=== PATIENT | female | born 1985 | race Caucasian/White ===

== ENCOUNTER 2023-08-12 11:39 | Emergency (ER) | payer OTHER, SELFPAY ==
[2023-08-12] VITALS (8 sets, daily range): BP systolic 103–166; BP diastolic 55–80; PULSE 54–80; RESP 16–18; TEMP 37; O2SAT 98–100; BMI 35.3
--- NOTE | 2023-08-12 | ECG_ITS ---
Test Reason : SYNCOPE Blood Pressure : / mmHG Vent. Rate : 055 BPM Atrial Rate : 055 BPM P-R Int : 148 ms QRS Dur : 084 ms QT Int : 420 ms P-R-T Axes : 044 007 -03 degrees QTc Int : 401 ms Sinus bradycardia with sinus arrhythmia Otherwise normal ECG No previous ECGs available Referred By: Generic ED Physician Electronically Signed By:DOT YOUNG MD
--- NOTE | ~2023-08-12 | CT_ITS ---
EXAMINATION: CT HEAD WITHOUT CONTRAST CLINICAL INFORMATION: Headache. COMPARISON: None available. TECHNIQUE: Contiguous axial imaging was performed from the skull base to vertex without intravenous administration of contrast. This CT examination was performed using dose optimization techniques as appropriate, variously including the following: *Automated exposure control *Adjustment of mA and/or kV according to patient size (this includes techniques or standardized protocols for targeted exams where dose is matched to indication/reason for exam; i.e. extremities or head) *Use of iterative reconstruction technique DLP: 670 mGy-cm FINDINGS: The lateral, third and fourth ventricles are normally outlined. The cortical sulci and basal cisterns are normally outlined as well. There is no acute territorial defect, hemorrhage or midline shift. The extra-axial spaces are unremarkable. Calvarium: Intact. Maxillofacial sinuses and mastoids: There are ethmoid and maxillary sinus opacities/mucosal thickening. The remaining visualized maxillofacial sinuses are clear. The mastoids are clear. CT/CT head/brain wo IV con IMPRESSION: No acute intracranial abnormality. Maxillary and ethmoid sinus mucosal thickening/opacities of uncertain acuity.
--- NOTE | 2023-08-12 12:28 | ED_ITS ---
HPI - Syncope General Chief Complaint: Syncope Stated Complaint: FAINTED,LORD FOR DAYS PER EMS Time Seen by Provider: 08/12/23 12:21 Source: patient and EMS Mode of arrival: EMS Limitations: no limitations History of Present Illness HPI narrative: headache for 10 days now with syncope at work, no head trauma but continued headache. NO nausea or vomiting complaint: loss of consciousness Onset (ago): minute(s) Prodromal symptoms: headache Related Data Previous Rx's Medication Instructions Recorded amoxicillin 875 mg-potassium 1 tab PO BID #20 tabs 08/12/23 clavulanate 125 mg tablet fluticasone furoate 27.5 2 spray intranasal DAILY #9.1 mL 08/12/23 mcg/actuation nasal spray,suspension (Flonase Sensimist) Allergies Allergy/AdvReac Type Severity Reaction Status Date / Time No Known Allergies Allergy Verified 08/12/23 11:56 Review of Systems 2 Review of Systems: Yes all other systems are reviewed and are negative Neurologic: Denies Sensory deficit (Neuro) [facility] Social History Social History Alcohol intake: never Smoked in Last 30 Days: Yes Use of substances other than those prescribed or required for medical reasons: No Advance Directives: No Advance Directives Information Provided: No Patient : No Physical Exam 2 Vital Signs: Vital Signs: Last Vital Signs Temp 98.6 F 08/12/23 11:58 Pulse 56 08/12/23 14:31 Resp 16 08/12/23 14:31 BP 103/55 L 08/12/23 14:31 Pulse Ox 98 08/12/23 14:31 O2 Del Method Room Air 08/12/23 14:31 BMI result Body Mass Index 35.3 Const: General: healthy appearing Nutritional Appearance: average body habitus Orientation/consciousness: oriented to person and patient oriented x3 Limitations: no limitations HEENT: Other: Tms and pharynx normal Head: Yes normal to inspection Ears: external ears normal General nose exam: Normal external nose present Mouth: Normal oral and palatal mucosa present and oropharynx normal Throat: Yes posterior oropharynx normal Eyes: General: appearance normal, both eyes and all related structures Neck: Other: supple Neck: Yes normal visual inspection Chest: Chest palpation & inspection: normal inspection of the chest Resp: Auscultation: clear to auscultation bilaterally Cardio: Jugular venous distension: no JVD Rate: regular rate Rhythm: r egular rhythm Heart sounds: S1 normal heart sound present and S2 normal heart sound present GI: Inspection: Yes normal to inspection Palpation (GI): Soft to palpation, nontender and No hepatosplenomegaly present Auscultation: normal bowel sounds : General: Yes no CVA tenderness Back/Spine/Pelvis: Back: no CVA tenderness Skin: General skin exam: no rashes or lesions noted Neuro: General: oriented to person and patient oriented x3 Cranial nerves: Yes CN's II-XII intact bilaterally Motor exam (neuro): 5/5 motor strength present throughout Sensory Exam: No Sensory deficit (Neuro) Extrem: General: Yes normal to inspection Psych: Appearance: grossly normal Course Reevaluation(s) Reevaluation #1: UA with possible UTI, head CT no bleed or mass, but maxillary sinusitis will start flonase and augmentin and dc home Time: 14:53 Medical Decision Making Differential Diagnosis Differential Diagnoses: The differential diagnosis associated with the presentation includes (syncope, anemia, arrhythmia, migraine, otitis were all considered) Admission/Observation Consideration of admission/observation: Escalation of care including admission/observation considered (upon arrival patient was considered for admission) Lab Data MDM Lab Attestation statement: I reviewed the patient's lab results. (slight elevation of WBC, UA consistent with UTI) 08/12/23 12:25 08/12/23 12:25 Labs: Lab Results 08/12/23 08/12/23 Range/Units 12:21 12:25 WBC 11.9 H (4.8-10.8) X10*3/uL RBC 4.68 (4.20-5.50) X10*6/uL Hgb 13.3 (12.0-16.0) g/dl Hct 40.5 (37.0-47.0) % MCV 86.5 (80.0-98.0) fL MCH 28.4 (27.0-33.0) pg MCHC 32.8 (31.0-35.0) g/dl RDW 12.9 (11.0-16.0) % Plt Count 350 (160-400) X10*3/uL MPV 8.8 L (9.4-12.3) fL Immature Gran % (Auto) 0.3 (0.0-0.4) % Neut % (Auto) 71.1 (45-73) % Lymph % (Auto) 20.7 (20-40) % Mayes % (Auto) 6.5 (2-11) % Eos % (Auto) 1.0 (0-4) % Baso % (Auto) 0.4 (0-2) % Lymph # (Auto) 2.5 (1.2-4.9) X10*3/uL Mayes # (Auto) 0.8 (0.1-1.2) X10*3/uL Eos # (Auto) 0.1 (0.0-0.4) X10*3/uL Baso # (Auto) 0.1 (0.0-0.2) X10*3/uL Abs Immat Gran (auto) 0.04 H (0.00-0.03) X10*3/uL Absolute Neuts (auto) 8.5 H (2.0-8.3) x10*3/uL Absolute Nucleated RBC 0.000 (0.0-0.012) X10*3/uL Nucleated RBC % (auto) 0.0 (0.0-0.2) /100WBC Sodium 139 (135-145) mmol/L Potassium 4.3 (3.3-5.1) mmol/L Chloride 105 (96-108) mmol/L Carbon Dioxide 29 (22-29) mmol/L Anion Gap 9 L (12-20) BUN 14 (9-16) mg/dL Creatinine 0.78 (0.5-1.4) mg/dL Estim Creat Clear Calc 98.5 Estimated GFR > 60 Random Glucose 93 (60-115) mg/dL Calcium 10.0 (8.4-10.2) mg/dL Total Bilirubin 0.4 (0.0-1.0) mg/dL AST 20 (5-31) U/L ALT 16 (0-31) U/L Alkaline Phosphatase 41 (39-117) U/L Total Protein 7.4 (6.5-8.0) g/dL Albumin 4.3 (3.5-5.0) g/dL Urine Color Yellow Urine Appearance Cloudy Urine pH 7.0 (5.0-9.0) Ur Specific [place] <= 1.005 (1.005-1.025) Urine Protein Negative (Neg-Trace) mg/dL Urine Glucose (UA) Negative (Negative) mg/dL Urine Ketones Negative (Negative) mg/dL Urine Blood Small (1+) H (Negative) Urine Nitrite Negative (Negative) Ur Leukocyte Esterase Small (1+) H (Negative) Urine RBC 3-5 H (0-2) /HPF Urine WBC 11-20 H (0-5) /HPF Ur Squamous Epith Cells 3-5 (0-2) /HPF Urine Bacteria None Seen (None Seen) Hyaline Casts 0-2 (0-2) /LPF Urine Test NEGATIVE (NEGATIVE) Independent Interpretation I performed an independent interpretation of an: EKG (sinus [address] or twave changes) and CT Scan (no mass, no bleed, fluid filled sinuses) Radiology Impression Discussion of test interpretation with radiology: I have reviewed the radiologist's reading. (and agree for sinusitis) Independent Historian Clinical information obtained from an independent historian. History obtained from or confirmed by: Spouse and Friend Prescription Management I considered prescription management with: Antibiotic (will start augmentin to cover UTI and sinusitis) Discharge Plan Discharge Clinical Impression: Syncope, Urinary tract infection, Sinusitis Patient Disposition: Home, Self-Care Instructions: Urinary Tract Infection in Women (DC), Sinusitis (ED), Syncope (ED) Prescriptions: New Flonase Sensimist 27.5 mcg/actuation spray,suspension 2 spray intranasal DAILY Qty: 9.1 0RF Rx Instructions: into each nostril amoxicillin-pot clavulanate 875-125 mg tablet 1 tab PO BID Qty: 20 0RF Referrals: Physician,None [Primary Care Provider] - 5 days
[2023-08-12 12:31] LABS: MANUAL DIFF FLAG NO
[2023-08-12 12:33] LABS: Appearance Urine Cloudy; Color Urine Yellow; Glucose Urine UA Negative (Negative); Leukocyte Esterase Urine Small (1+) (Negative); Nitrite Urine Negative (Negative); Specific Gravity - Urine <= 1.005 (1.005-1.025); UMIC TRIGGER UACC YES; Urine Blood Small (1+) (Negative); Urine Ketones Negative (Negative); Urine Protein Negative (Neg-Trace)
[2023-08-12 12:33] LABS: Basophils Absolute Auto 0.1 X10*3/uL (0.0-0.2); Basophils Percent Auto 0.4 % (0-2); Eosinophils Absolute Auto 0.1 X10*3/uL (0.0-0.4); Hematocrit 40.5 % (37.0-47.0); Hemoglobin 13.3 g/dl (12.0-16.0); Imm Gran Abs Auto 0.04 X10*3/uL (0.00-0.03); Imm Gran Pct Auto 0.3 % (0.0-0.4); Lymphocytes Absolute Auto 2.5 X10*3/uL (1.2-4.9); Lymphocytes Percent Auto 20.7 % (20-40); Mean Corpuscular HGB Conc 32.8 g/dl (31.0-35.0); Mean Corpuscular Hemoglobin 28.4 pg (27.0-33.0); Mean Corpuscular Volume 86.5 fL (80.0-98.0); Mean Platelet Volume 8.8 fL (9.4-12.3); Monocytes Absolute Auto 0.8 X10*3/uL (0.1-1.2); Monocytes Percent Auto 6.5 % (2-11); Neutrophils Absolute Auto 8.5 x10*3/uL (2.0-8.3); Neutrophils Percent Auto 71.1 % (45-73); Platelet Count 350 X10*3/uL (160-400); Red Blood Count 4.68 X10*6/uL (4.20-5.50); Red Cell Distribution Width 12.9 % (11.0-16.0); White Blood Count 11.9 X10*3/uL (4.8-10.8)
[2023-08-12 12:41] LABS: Bacteria Urine None Seen (None Seen); Hyaline Casts Urine 0-2 /LPF (0-2); UACC Culture Trigger YES
[2023-08-12 12:44] LABS: Anion Gap 9 (12-20); Blood Urea Nitrogen 14 mg/dL (9-16); Carbon Dioxide 29 mmol/L (22-29); Chloride 105 mmol/L (96-108); Potassium 4.3 mmol/L (3.3-5.1); Sodium 139 mmol/L (135-145)
[2023-08-12 12:45] LABS: Alanine Aminotransferase 16 U/L (0-31); Albumin Level 4.3 g/dL (3.5-5.0); Alkaline Phosphatase 41 U/L (39-117); Aspartate Amino Transferase 20 U/L (5-31); Bilirubin Total 0.4 mg/dL (0.0-1.0); Creatinine Clr Calc Pharmacy 98.5; Estimated Glomerular Filt Rate > 60; Glucose Random 93 mg/dL (60-115); Total Protein 7.4 g/dL (6.5-8.0)
[2023-08-12 13:03] LABS: UPreg QC Valid YES; Urine Pregnancy NEGATIVE (NEGATIVE)
[2023-08-12] MEDS: Ketorolac Tromethamine 60 MG/2 ML VIAL IM (16:06)
== END 2023-08-12 16:07 | disposition home or self-care (01) ==
PROVIDERS: Emergency Provider Emergency Medicine
DX: R55 Syncope and collapse (principal); J32.9 Chronic sinusitis, unspecified; N39.0 Urinary tract infection, site not specified; R51.9 Headache, unspecified
CPT/HCPCS: 36415; 70450; 80053; 81001; 81025; 85025; 87086; 93005; 99283; 99285; J1885

== ENCOUNTER 2025-08-04 08:31 | Outpatient (REF) | payer OTHER, SELFPAY ==
--- NOTE | ~2025-08-04 | XR_ITS ---
EXAMINATION: X-ray thoracic spine X-ray lumbar spine CLINICAL INFORMATION: Dorsalgia COMPARISON: None TECHNIQUE: Thoracic spine 3 views. Lumbar spine 3 views. FINDINGS: Thoracic spine: The upper thoracic spine is obscured on the lateral projection. On the provided views, no evidence of acute fracture or subluxation. Vertebral body heights are maintained. Mild disc degeneration in the lower thoracic spine. No suspicious bony lesions. Lumbar spine: There appears to be transitional anatomy. The lowermost well formed disc space, as seen on the lateral view, designated as L5-S1 for the purpose of this study. The S1-2 disc space is not well seen. The visualized disc spaces otherwise are maintained. No acute fracture subluxation. Vertebral body heights are maintained. No suspicious bony lesion. SI joints are symmetric. IUD projected of the pelvis. XR/XR lumbar spine 2-3V IMPRESSION: Thoracic spine: *No acute fracture subluxation. *The upper thoracic vertebral bodies are suboptimally visualized/evaluated. Lumbar spine: *There appears to be transitional anatomy. For the purpose of this study, the lowermost well formed/visualized disc space, as seen on the lateral view is designated as L5-S1. The S1-2 disc space is not well seen. Close clinical and imaging correlation is recommended prior to any intervention. *No acute fracture subluxation. Electronically signed by: José Armendariz MD 08/04/2025 11:00 AM [facility]
--- NOTE | ~2025-08-04 | XR_ITS ---
EXAMINATION: X-ray thoracic spine X-ray lumbar spine CLINICAL INFORMATION: Dorsalgia COMPARISON: None TECHNIQUE: Thoracic spine 3 views. Lumbar spine 3 views. FINDINGS: Thoracic spine: The upper thoracic spine is obscured on the lateral projection. On the provided views, no evidence of acute fracture or subluxation. Vertebral body heights are maintained. Mild disc degeneration in the lower thoracic spine. No suspicious bony lesions. Lumbar spine: There appears to be transitional anatomy. The lowermost well formed disc space, as seen on the lateral view, designated as L5-S1 for the purpose of this study. The S1-2 disc space is not well seen. The visualized disc spaces otherwise are maintained. No acute fracture subluxation. Vertebral body heights are maintained. No suspicious bony lesion. SI joints are symmetric. IUD projected of the pelvis. XR/XR thoracic spine 3V IMPRESSION: Thoracic spine: *No acute fracture subluxation. *The upper thoracic vertebral bodies are suboptimally visualized/evaluated. Lumbar spine: *There appears to be transitional anatomy. For the purpose of this study, the lowermost well formed/visualized disc space, as seen on the lateral view is designated as L5-S1. The S1-2 disc space is not well seen. Close clinical and imaging correlation is recommended prior to any intervention. *No acute fracture subluxation. Electronically signed by: José Armendariz MD 08/04/2025 11:00 AM [facility]
[2025-08-04 10:38] LABS: MANUAL DIFF FLAG NO
[2025-08-04 11:23] LABS: Hematocrit 41.7 % (37.0-47.0); Hemoglobin 13.7 g/dl (12.0-16.0); Imm Gran Abs Auto 0.06 X10*3/uL (0.00-0.03); Imm Gran Pct Auto 0.6 % (0.0-0.4); Lymphocytes Absolute Auto 2.6 X10*3/uL (1.2-4.9); Mean Corpuscular HGB Conc 32.9 g/dl (31.0-35.0); Mean Corpuscular Hemoglobin 28.5 pg (27.0-33.0); Mean Corpuscular Volume 86.9 fL (80.0-98.0); NRBC Abs Auto 0.000 X10*3/uL (0.0-0.012); NRBC Pct Auto 0.0 /100WBC (0.0-0.2); Platelet Count 386 X10*3/uL (160-400); Red Blood Count 4.80 X10*6/uL (4.20-5.50); White Blood Count 10.1 X10*3/uL (4.8-10.8)
[2025-08-04 12:15] LABS: Alanine Aminotransferase 16 U/L (0-31); Albumin Level 4.3 g/dL (3.5-5.0); Alkaline Phosphatase 43 U/L (39-117); Anion Gap 9 (12-20); Aspartate Amino Transferase 28 U/L (5-31); Blood Urea Nitrogen 9 mg/dL (9-16); Calcium 9.1 mg/dL (8.4-10.2); Carbon Dioxide 29 mmol/L (22-29); Chloride 105 mmol/L (96-108); Cholesterol 246 mg/dL (<200); Estimated Glomerular Filt Rate > 60; HDL Cholesterol 36 mg/dL (>40); Potassium 3.9 mmol/L (3.3-5.1); Sodium 139 mmol/L (135-145); Total Protein 7.1 g/dL (6.5-8.0); Triglycerides 368 mg/dL (<150)
[2025-08-04 12:53] LABS: Reflex LDLD? No
== END 2025-08-04 08:32 | disposition home or self-care (01) ==
LOC: HO.XRAY 08:31
PROVIDERS: Visit Provider Student in an Organized Health Care Education/Training Program
DX: Z00.00 Encounter for general adult medical examination without abnormal findings (principal); E66.9 Obesity, unspecified; M54.50 Low back pain, unspecified; R03.0 Elevated blood-pressure reading, without diagnosis of hypertension; Z83.3 Family history of diabetes mellitus; Z13.1 Encounter for screening for diabetes mellitus; Z68.36 Body mass index [BMI] 36.0-36.9, adult
CPT/HCPCS: 36415; 72072; 72100; 80053; 80061; 83036; 85025; 99202

== ENCOUNTER 2025-08-04 08:31 | Outpatient (AMB) | payer OTHER, SELFPAY ==
--- NOTE | 2025-08-04 08:42 | MHC.PC.OV ---
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 Transferring care from Unknown. Medical records have not been requested and have not received. Credit Administrator Required: No Handle Machine Operator: Not Required per policy Accompanied by: Self / Same As Patient Allergies No Known Allergies Allergy (Verified 08/04/25 08:43) Tobacco use date assessed: 08/04/25 Dental Screening Dental Screen Date: 08/04/25 Did you have a dental visit in the last 12 months?: Yes Did you have a dental problem in the last 6 months where you did not have access to dental care?: No Was dental information given to patient?: Patient has dentist HPI HPI Comments History of Present Illness Details The patient is a 40 year old individual presenting for evaluation of chronic right lower back pain. The pain started in October of this year after the patient, an avid runner, heard a pop while running on a treadmill. Two weeks later, the patient went to the emergency room at [facility] due to severe pain that made it difficult to stand up straight and was diagnosed with a pulled muscle. The patient describes the pain as a daily, pulsating sensation localized to the right lower back. It is most severe in the morning, rated as an 8 out of 10, causing difficulty getting out of bed, and is associated with some morning stiffness. The pain is exacerbated by prolonged sitting, standing, and walking, which has significantly limited the patient's ability to run or lift heavy objects. The pain does not radiate down the legs. Patient works in the [employer] which is a physically demanding job. Patient reported she had a course of physical therapy for about two months, which did not provide relief. The patient has been self-treating daily since October with Tylenol and ibuprofen 800 mg twice a day, and also uses lidocaine patches at night. Patient is not on any other medications. Past medical history is significant for kidney stones, which pass spontaneously, and kidney infections. The patient also has carpal tunnel in one hand. Family history is positive for diabetes, high blood pressure, and gout. PFSH Surgical History (Updated 08/04/25 @ 08:51 by HAO Donovan) No pertinent past surgical history Social History (Updated 08/04/25 @ 08:51 by HAO Donovan) Housing: House Alcohol intake: never Patient Tobacco Use Status: Never used Tobacco e-Cigarette/Vaping Use: Currently Using service: Yes Current occupational status: employed Cognitive needs: No Hearing needs: No Vision needs: No Questionnaire PHQ-9 Over the last 2 weeks, how often have you been bothered by any of the following problems? 1. Little interest or pleasure in doing things: not at all 2. Feeling down, depressed, or hopeless: not at all 3. Trouble falling or staying asleep, or sleeping too much: not at all 4. Feeling tired or having little energy: several days 5. Poor appetite or overeating: not at all 6. Feeling bad about yourself - or that you are a failure or have let yourself or your family down: not at all 7. Trouble concentrating on things, such as reading the newspaper or watching television: not at all 8. Moving or speaking so slowly that other people could have noticed. Or the opposite - being so fidgety or restless that you have been moving around a lot more than usual: not at all 9. Thoughts that you would be better off or of hurting yourself in some way: not at all Total score: 1 Depression Screening Interpretation: Positive Depression Screening Done: Yes Source: Developed by Drs. Elijah Castro, Jen Mejia, Gómez Sands and colleagues, with an educational geovanna from [email or web address]. Thrive Questionnaire Date Thrive assessed: 07/28/25 I am a: Patient What is your living situation today?: I have a steady place to live Within the past 12 months, did the food you bought not last and you didn't have the money to get more?: Never true Within the past 12 months, did you worry whether your food would run out before you got money to buy more?: Never true Do you have trouble paying for medicines?: No Do you have trouble getting transportation to medical appointments?: No Do you have trouble paying your heating and electricity bill?: No Do you have trouble taking care of your child, family member or friend?: No Do you have trouble with day-to-day activities such as bathing, preparing meals, shopping, managing finances, etc.?: No Are you currently unemployed and looking for a job?: No Are you interested in more education?: No Please select the resources that you would like help with: None Currently or been in a relationship where the following occur: No concerns reported THRIVE Score: 0 AUDIT C Alcohol Use Questionnaire (AUDIT-C) 1. How often do you have a drink containing alcohol?: Never 2. How many drinks containing alcohol do you have on a typical day when you are drinking?: 1 or 2 3. How often do you have six or more drinks on one occasion?: Never Total Score: 0 YOBANY-7 AMB Questionnaire YOBANY-7 Date YOBANY - 7 assessed: 08/04/25 Feeling nervous, anxious, or on edge: 1 = Several days Not being able to stop or control worryin = Several days Worrying too much about different things: 1 = Several days Trouble relaxin = Several days Being so restless that it is hard to sit still: 1 = Several days Becoming easily annoyed or irritable: 1 = Several days Feeling afraid as if something awful might happen: 1 = Several days Total YOBANY-7 score (0-4 normal; 5-9 mild; 10-14 moderate; 15-21 severe): 7 Source: Developed by Drs. Elijah Castro, Jen Mejia, Gómez Sands and colleagues, with an educational geovanna from [email or web address]. Physical exam (Primary Care) Vital Signs: Last Vital Signs Temp 97.3 F 08/04/25 08:43 Pulse 76 08/04/25 08:43 BP 132/92 H 08/04/25 08:43 Pulse Ox 95 08/04/25 08:43 Oxygen Delivery Method Room Air 08/04/25 08:43 General: Well-appearing, alert, oriented ?3, in no acute distress. Cardiovascular: RRR, S1-S2 appreciated, no murmurs, rubs or gallops. Respiratory: Lungs clear to auscultation bilaterally, no wheezes, rales or rhonchi. Abdomen: Soft, nontender, nondistended. Normoactive bowel sounds. Back exam: Tenderness upon palpation of right middle/lower back. No tenderness over the buttocks. Straight leg raise test negative in bilateral legs. Sensation and strength intact in bilateral lower extremity. BMI result Body Mass Index 36.3 Tobacco/Smoking Status: Tobacco use Status Tobacco use date assessed 08/04/25 08/04/25 08:53 Patient Tobacco Use Status Never used Tobacco 08/04/25 08:53 e-Cigarette/Vaping Use Currently Using 08/04/25 08:53 PHQ-9: PHQ-9 Score PHQ-9: Total score 1 08/04/25 08:53 Depression Screening Interpretation: Positive Thrive Assessment: Date of Thrive Assessment Date Thrive assessed 07/28/25 08/04/25 08:53 Currently or been in a relationship where the following occur: No concerns reported Coding Level of Care Code New Pt Level 4 (60720) Diagnoses Right-sided back pain, unspecified back location, unspecified chronicity M54.9 Back pain location: back pain in unspecified location Chronicity: unspecified Back pain laterality: right Elevated blood pressure reading R03.0 Family history of diabetes mellitus Z83.3 Assessment & Plan Assessment & Plan (1) Back pain: Code(s): M54.9 - Dorsalgia, unspecified Category: Medical Qualifiers: Back pain location: back pain in unspecified location Chronicity: unspecified Back pain laterality: right Qualified Code(s): M54.9 - Dorsalgia, unspecified Plan: Patient presenting with chronic right lower back pain since October 2024, which is likely musculoskeletal in origin following a workout incident. Per patient pain has been refractory to physical therapy in the past and high dose ibuprofen. Plan is to obtain thoracic and lumbar spine x-rays for further evaluation. Patient will discontinue ibuprofen start meloxicam 7.5 mg twice daily. Referral for another course of physical therapy will be placed. Patient will follow up in 4-6 weeks to assess progress. (2) Elevated blood pressure reading: Code(s): R03.0 - Elevated blood-pressure reading, without diagnosis of hypertension Plan: Patient denies personal history of hypertension, has family history of hypertension. Blood pressure in clinic today is 132/92. Patient advised to keep a blood pressure log, check readings twice a day for 2 weeks and return in 2 weeks for nurse visit for blood pressure check to further evaluate. (3) Family history of diabetes mellitus: Code(s): Z83.3 - Family history of diabetes mellitus Category: Medical Plan: Obtain blood work. Orders: Orders XR lumbar spine 2-3V Today M54.9 - Dorsalgia, unspecified Comprehensive Met. Panel Today Z00.00 - Encounter for general adult medical examination without abnormal findings Lipid Panel with Reflex Today E66.9 - Obesity, unspecified XR thoracic spine 3V Today M54.9 - Dorsalgia, unspecified PT Evaluation and Treatment Today M54.9 - Dorsalgia, unspecified Complete Blood Count Auto Diff Today Z00.00 - Encounter for general adult medical examination without abnormal findings Hemoglobin A1c Today Z13.1 - Encounter for screening for diabetes mellitus Medications: New meloxicam 7.5 mg PO DAILY 30 tabs 0RF pain meloxicam 7.5 mg PO DAILY 30 tabs 1RF pain Discontinued amoxicillin-pot clavulanate 875-125 mg Discontinued Reason: Patient Completed Course 1 tab PO BID 20 tabs 0RF fluticasone furoate 27.5 mcg/actuation (Flonase Sensimist) into each nostril Discontinued Reason: Patient Completed Course 2 sprays intranasal DAILY 9.1 mL 0RF
[2025-08-04 08:43] VITALS: BP 132/92; PULSE 76; TEMP 36.3; O2SAT 95; BMI 36.3
== END 2025-08-04 09:27 | disposition home or self-care (01) ==
LOC: HO.HMCH 08:32
PROVIDERS: Visit Provider Student in an Organized Health Care Education/Training Program
DX: M54.9 Dorsalgia, unspecified (principal); R03.0 Elevated blood-pressure reading, without diagnosis of hypertension; Z83.3 Family history of diabetes mellitus

== ENCOUNTER → 2025-08-04 09:39 | Outpatient (BNV) | payer OTHER, SELFPAY | PROVIDERS: Visit Provider Radiology Diagnostic Ultrasound | DX: M54.50 Low back pain, unspecified (principal); M54.6 Pain in thoracic spine | CPT/HCPCS: 72072; 72100 ==

== ENCOUNTER 2025-08-25 08:52 | Outpatient (AMB) | payer OTHER, SELFPAY ==
[2025-08-25 09:06] VITALS: BP 126/82; PULSE 76; O2SAT 98; BMI 37.2
--- NOTE | 2025-08-25 09:06 | A.OFFPC_ITS ---
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 Last seen 08/04/2025 for back pain that has been persistent since October 2024, recommendation was to discontinue ibuprofen, start meloxicam daily and referred to physical therapy. X-ray of thoracic and lumbar spine was unremarkable. To day, patient reports that pain is still there but meloxicam is helping relatively. She could not get in with physical therapy as it was out of network with her insurance. Regarding her elevated blood pressure reading last visit, she was advised to monitor blood pressure at home and keep a log. Today, she report home readings consistently in the 120/80s. She states that she has cut down on caffeine intake to only 1 caffeinated beverage per day. Denies any alcohol or smoking. She reports weight gain since she has stopped exercising due to her back pain. She describes her diet as healthier-for the most part except eating snacks like Cheetos and fries. Patient is in the [employer] and states that she will be moving back to [place] next month, because of which she defers referral to physical therapy at this time. [facility] Surgical History No pertinent past surgical history Social History Housing: House Alcohol intake: never Patient Tobacco Use Status: Never used Tobacco e-Cigarette/Vaping Use: Currently Using service: Yes Current occupational status: employed Cognitive needs: No Hearing needs: No Vision needs: No Questionnaire PHQ-9 Over the last 2 weeks, how often have you been bothered by any of the following problems? 1. Little interest or pleasure in doing things: not at all 2. Feeling down, depressed, or hopeless: not at all 3. Trouble falling or staying asleep, or sleeping too much: not at all 4. Feeling tired or having little energy: several days 5. Poor appetite or overeating: not at all 6. Feeling bad about yourself - or that you are a failure or have let yourself or your family down: not at all 7. Trouble concentrating on things, such as reading the newspaper or watching television: not at all 8. Moving or speaking so slowly that other people could have noticed. Or the opposite - being so fidgety or restless that you have been moving around a lot more than usual: not at all 9. Thoughts that you would be better off or of hurting yourself in some way: not at all Total score: 1 Source: Developed by Drs. Elijah Castro, Jen Mejia, Gómez Sands and colleagues, with an educational geovanna from [employer]. Thrive Questionnaire Date Thrive assessed: 08/25/25 I am a: Patient What is your living situation today?: I have a steady place to live Within the past 12 months, did the food you bought not last and you didn't have the money to get more?: Never true Within the past 12 months, did you worry whether your food would run out before you got money to buy more?: Never true Do you have trouble paying for medicines?: No Do you have trouble getting transportation to medical appointments?: No Do you have trouble paying your heating and electricity bill?: No Do you have trouble taking care of your child, family member or friend?: No Do you have trouble with day-to-day activities such as bathing, preparing meals, shopping, managing finances, etc.?: No Are you currently unemployed and looking for a job?: No Are you interested in more education?: No Please select the resources that you would like help with: None Currently or been in a relationship where the following occur: No concerns reported THRIVE Score: 0 AUDIT C Alcohol Use Questionnaire (AUDIT-C) 1. How often do you have a drink containing alcohol?: Never 3. How often do you have six or more drinks on one occasion?: Never Total Score: 0 YOBANY-7 AMB Questionnaire YOBANY-7 Date YOBANY - 7 assessed: 08/25/25 Feeling nervous, anxious, or on edge: 1 = Several days Not being able to stop or control worryin = Several days Worrying too much about different things: 1 = Several days Trouble relaxin = Several days Being so restless that it is hard to sit still: 1 = Several days Becoming easily annoyed or irritable: 1 = Several days Feeling afraid as if something awful might happen: 1 = Several days Total YOBANY-7 score (0-4 normal; 5-9 mild; 10-14 moderate; 15-21 severe): 7 Source: Developed by Drs. Elijah Castro, Jen Mejia, Gómez Sands and colleagues, with an educational geovanna from [employer]. Physical exam (Primary Care) Vital Signs: Last Vital Signs Pulse 76 08/25/25 09:06 BP 126/82 08/25/25 09:06 Pulse Ox 98 08/25/25 09:06 Oxygen Delivery Method Room Air 08/25/25 09:06 General: Well-appearing, alert, oriented ?3, in no acute distress. Cardiovascular: RRR, S1-S2 appreciated, no murmurs, rubs or gallops. Respiratory: Lungs clear to auscultation bilaterally, no wheezes, rales or r honchi. Abdomen: Soft, nontender, nondistended. Normoactive bowel sounds. BMI result Body Mass Index 37.2 Tobacco/Smoking Status: Tobacco use Status Tobacco use date assessed 08/25/25 08/25/25 09:15 Patient Tobacco Use Status Never used Tobacco 08/25/25 09:06 e-Cigarette/Vaping Use Currently Using 08/25/25 09:06 PHQ-9: PHQ-9 Score PHQ-9: Total score 1 08/25/25 09:15 Thrive Assessment: Date of Thrive Assessment Date Thrive assessed 08/25/25 08/25/25 09:15 Currently or been in a relationship where the following occur: No concerns repor violette Coding Level of Care Code Est Pt Level 4 (93842) Diagnoses Hyperlipidemia, unspecified hyperlipidemia type E78.5 Hyperlipidemia type: unspecified Right-sided back pain, unspecified back location, unspecified chronicity M54.9 Back pain location: back pain in unspecified location Chronicity: unspecified Back pain laterality: right Elevated blood pressure reading R03.0 Assessment & Plan Assessment & Plan (1) Hyperlipidemia: Code(s): E78.5 - Hyperlipidemia, unspecified Category: Medical Qualifiers: Hyperlipidemia type: unspecified Qualified Code(s): E78.5 - Hyperlipidemia, unspecified Plan: Blood work from 08/04/2025 was remarkable for elevated triglycerides, total cholesterol and LDL cholesterol. She was counseled extensively on dietary modifications including avoiding fried food, saturated and trans fats, decrease red meat, pork and high fat dairy products. Recommended to increase fiber intake and using healthier oils like olive or avocado oil. Reduce carbohydrate intake. will need to repeat lipid panel in 3 months. She is moving to [place] next month and will establish care with a new provider there. (2) Back pain: Code(s): M54.9 - Dorsalgia, unspecified Category: Medical Qualifiers: Back pain location: back pain in unspecified location Chronicity: unspecified Back pain laterality: right Qualified Code(s): M54.9 - Dorsalgia, unspecified Plan: Last seen 08/04/2025 for back pain that has been persistent since October 2024, recommendation was to discontinue ibuprofen, start meloxicam daily and referred to physical therapy. X-ray of thoracic and lumbar spine was unremarkable. Patient reports persistent pain but relatively better with meloxicam. She could not get in with physical therapy as it was out of network with her insurance. She would like further evaluation of her low back pain, MRI ordered. Patient is in the [employer] and states that she is moving back to [place] next month, for which she defers another referral to physical therapy at this time. (3) Elevated blood pressure reading: Code(s): R03.0 - Elevated blood-pressure reading, without diagnosis of hypertension Plan: Regarding her elevated blood pressure reading last visit, she was advised to monitor blood pressure at home and keep a log. she reports home readings consistently in the 120/80s. She has cut down on caffeine and denies alcohol or smoking. Continues lifestyle modifications. Orders: Orders MR lumbar spine wo con Today M54.50 - Low back pain, unspecified
== END 2025-08-25 09:41 | disposition home or self-care (01) ==
LOC: HO.HMCH 08:53
PROVIDERS: PCP Student in an Organized Health Care Education/Training Program; Visit Provider Student in an Organized Health Care Education/Training Program
DX: E78.5 Hyperlipidemia, unspecified (principal); M54.9 Dorsalgia, unspecified; R03.0 Elevated blood-pressure reading, without diagnosis of hypertension

== ENCOUNTER → 2025-08-25 08:52 | Outpatient (BNVA) | payer OTHER, SELFPAY | PROVIDERS: PCP Student in an Organized Health Care Education/Training Program; Visit Provider Student in an Organized Health Care Education/Training Program | DX: R03.0 Elevated blood-pressure reading, without diagnosis of hypertension (principal); M54.9 Dorsalgia, unspecified; E78.5 Hyperlipidemia, unspecified; Z13.31 Encounter for screening for depression | CPT/HCPCS: 96127; 99212 ==